=== PATIENT | female | born 1985 ===

== ENCOUNTER 2022-05-08 22:28 | Emergency (ER) | payer BC ==
[2022-05-08] MEDS ORDERED: Sodium Chloride 0.9% 20 ML SDV IV PRN (22:40)
[2022-05-08] MEDS ORDERED: Sodium Chloride 0.9% 10 ML Syringe FLUSH PRN (22:40)
[2022-05-08] MEDS ORDERED: Sodium Chloride 0.9% 2.5 ML Syringe FLUSH PRN (22:40)
[2022-05-08] MEDS ORDERED: methylPREDNISolone Sodium Succinate 125 MG/2 ML SDV IVPUSH ONE (22:41)
== END 2022-05-08 22:50 | disposition home or self-care (01) ==
LOC: MW.ED 22:28
DX: G51.0 Bell's palsy (principal); I10 Essential (primary) hypertension; E11.9 Type 2 diabetes mellitus without complications; Z86.73 Personal history of transient ischemic attack (TIA), and cerebral infarction without residual deficits
CPT/HCPCS: 70450; 93005; 96374; 99284; J2930

== ENCOUNTER 2023-05-19 18:05 | Emergency (ER) | payer BC ==
[2023-05-19] MEDS ORDERED: LORazepam 2 MG/ML SDV ONE ×2 (18:42→18:50)
[2023-05-19] MEDS ORDERED: LORazepam 2 MG/ML SDV IVPUSH ONE ×2 (18:42→19:53)
[2023-05-19] MEDS ORDERED: Sodium Chloride 0.9% 1,000 ML IV ONE (18:42)
[2023-05-19] MEDS ORDERED: Sodium Chloride 0.9% 2.5 ML Syringe FLUSH PRN (18:46)
[2023-05-19] MEDS ORDERED: Sodium Chloride 0.9% 10 ML Syringe FLUSH PRN (18:46)
[2023-05-19 18:57] LABS: BASOPHILS PERCENT AUTO 0.2 % (0.0-1.5); EOSINOPHILS ABSOLUTE AUTO 0.2 K/uL (0.0-0.7); EOSINOPHILS PERCENT AUTO 1.5 % (0.0-7.0); HEMATOCRIT 46.6 % (36.0-46.0); LYMPHOCYTES ABSOLUTE AUTO 7.1 K/uL (0.6-2.4); LYMPHOCYTES PERCENT AUTO 50.8 % (16.0-40.0); MEAN CORPUSCULAR HEMOGLOBIN 31.4 pg (27.0-32.0); MEAN CORPUSCULAR HGB CONC 32.2 g/dL (31.0-37.0); MEAN CORPUSCULAR VOLUME 97.7 fL (80.0-98.0); MONOCYTES ABSOLUTE AUTO 0.9 K/uL (0.0-0.8); MONOCYTES PERCENT AUTO 6.5 % (0.0-15.0); NEUTROPHILS ABSOLUTE AUTO 5.8 K/uL (1.4-5.7); NRBC ABSOLUTE 0 K/uL; PLATELET COUNT,PLT 330 K/uL (150-400); RED BLOOD CELL COUNT 4.77 M/uL (4.30-5.90); WHITE BLOOD CELL COUNT,WBC 14.03 K/uL (4.0-11.0)
[2023-05-19 19:18] LABS: A/G RATIO 1.1 (0.9-1.6); ALANINE AMINOTRANSFERASE,ALT 46 IU/L (14-63); ALBUMIN 4.6 g/dL (3.4-5.0); ALKALINE PHOSPHATASE 114 U/L (46-116); ASPARTATE AMNIOTRANSFERASE,AST 29 IU/L (15-37); BILIRUBIN TOTAL 0.4 mg/dL (0.2-1.0); BLOOD UREA NITROGEN,BUN 12 mg/dL (7.0-18.0); CALCIUM 9.8 mg/dL (8.5-10.1); CARBON DIOXIDE,CO2 14.4 mmol/L (21.0-32.0); CHLORIDE,CL 101 mmol/L (98-107); CREATININE 1.1 mg/dL (0.6-1.0); EST CRCL DRUG DOSING (CG) 59.88 mL/min; GLUCOSE RANDOM 121 mg/dL (74-106); POTASSIUM,K 3.3 mmol/L (3.5-5.1); PROTEIN TOTAL,TP 8.6 g/dL (6.4-8.2); SODIUM,NA 146 mmol/L (136-145)
[2023-05-19 19:19] LABS: ESTIMATED GFR 66 mL/min (>60); ETHANOL BLOOD MEDICAL < 3.0 mg/dL
[2023-05-19] MEDS ORDERED: Ondansetron 4 MG/2 ML SDV ONE (19:22)
[2023-05-19] MEDS ORDERED: Iopamidol 755 Mg/ML 100 ML Bottle IVPUSH ONE (19:30)
[2023-05-19] MEDS ORDERED: cefTRIAXone 2 GM in Sodium Chloride 0.9% 50 ML IV ONE (19:51)
[2023-05-19] MEDS ORDERED: Dexamethasone 10 MG/ML SDV IVPUSH ONE (19:51)
[2023-05-19] MEDS ORDERED: Ondansetron 4 MG/2 ML SDV IVPUSH ONE (19:52)
[2023-05-19] MEDS ORDERED: Midazolam 1 MG/ML 2 ML SDV IVPUSH ONE (19:56)
[2023-05-19] MEDS ORDERED: VANCOmycin 1.5 GM/300 ML 300 ML IV ONE (20:00)
[2023-05-19 20:34] LABS: BILIRUBIN,URINE NEGATIVE (NEGATIVE); COLOR,URINE YELLOW; GLUCOSE,URINE 100 mg/dL (NEGATIVE); KETONES,URINE NEGATIVE (NEGATIVE); LEUKOCYTE ESTERASE,URINE NEGATIVE (NEGATIVE); NITRITE,URINE NEGATIVE (NEGATIVE); OCCULT BLOOD,URINE MODERATE (NEGATIVE); PROTEIN,URINE TRACE mg/dL (NEGATIVE); UROBILINOGEN,URINE 0.2 EU/dL (<2.0)
[2023-05-19 20:42] LABS: APPEARANCE,URINE CLEAR
[2023-05-19 20:47] LABS: BACTERIA,URINE OCCASIONAL (NEGATIVE); CALCIUM OXALATE CRYSTALS,URINE OCCASIONAL (NEGATIVE); EPITHELIAL CELLS,URINE FEW (NONE-FEW); MUCUS,URINE FEW (NONE-MOD); SQUAMOUS EPITHELIAL CELLS,UR FEW; WBC,URINE 0-2 (0-5/HPF)
[2023-05-19 22:09] LABS: APPEARANCE CSF CLEAR; COLOR,CSF COLORLESS; WBC,CSF 2 /uL (0-5)
[2023-05-19 22:11] LABS: RBC,CSF 0 /uL (0-0)
== END 2023-05-19 21:35 ==
LOC: MW.ED 18:05
DX: R56.9 Unspecified convulsions (principal)
CPT/HCPCS: 36415; 62270; 70450; 70496; 70498; 71045; 80053; 80307; 81001; 82945; 82947; 83735; 84157; 84484; 84703; 85025; 86788; 86789; 87070; 87205; 89050; 93005; 96365; 96367; 96368; 96375; 96376; 99285; 99291; J0133; J0696; J1100; J1953; J2060; J2250; J2405; J3370; J3490; J7030; J7050; J7060; Q9967